=== PATIENT | male | born 1990 | race African-American/Black ===

== ENCOUNTER 2016-10-11 23:59 | Emergency (ER) | payer OTHER ==
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
== END 2016-10-12 01:05 | disposition home or self-care (01) ==
LOC: CFTX 23:59
DX: S39.012A Strain of muscle, fascia and tendon of lower back, initial encounter (principal); S16.1XXA Strain of muscle, fascia and tendon at neck level, initial encounter; V49.00XA Driver injured in collision with unspecified motor vehicles in nontraffic accident, initial encounter
CPT/HCPCS: 72040; 72100; 96372; 99284; J1885